=== PATIENT | female | born 1950 | race Caucasian/White ===

== ENCOUNTER 2018-05-28 12:06 | Emergency (ER) | payer MEDICARE, OTHER ==
[~2018-05-28] VITALS: Ht 149.9 cm; Wt 67.1 kg
[2018-05-28 12:07] VITALS: BP 112/65
[2018-05-28] MEDS ORDERED: NACL 0.9% 1,000 ML IV ONE (12:50)
[2018-05-28] MEDS ORDERED: KETOROLAC 30 MG/ML VIAL IVP ONE (13:30)
[2018-05-28 13:35] LABS: BASOPHILS % (AUTO) 0.2 % (0.0-2.0); EOSINOPHILS % (AUTO) 0.3 % (0.0-4.0); HEMATOCRIT 31.5 % (36-48); HEMOGLOBIN 10.1 g/dL (12.0-16.0); LYMPHOCYTES # (AUTO) 1.6 K/uL (2.5-16.5); LYMPHOCYTES % (AUTO) 27.8 % (20.5-51.1); MEAN CORPUSCULAR HEMOGLOBIN 28 pg (27-31); MEAN CORPUSCULAR HGB CONC 32 g/dL (33-37); MEAN CORPUSCULAR VOLUME 86.4 fL (80-94); MONOCYTES # (AUTO) 1.1 K/uL (0.8-1.0); MONOCYTES % (AUTO) 18.3 % (1.7-9.3); NEUTROPHILS # (AUTO) 3.1 K/uL (1.8-7.7); NEUTROPHILS % (AUTO) 53.4 % (42.2-75.2); PLATELET COUNT (AUTO) 249 K/uL (140-450); RED BLOOD CELL COUNT(AUTO) 3.65 MIL/uL (4.20-5.40); RED CELL DISTRIBUTION WIDTH 19.6 % (11.6-13.7); WHITE BLOOD COUNT (AUTO) 5.8 K/uL (4.8-10.8)
[2018-05-28 13:55] LABS: PROTHROMBIN TIME 13.3 secs (10.8-13.4)
[2018-05-28 14:03] LABS: ANION GAP 14.7 (8-16); CARBON DIOXIDE 22.8 mmol/L (21-32); CREATININE 0.9 mg/dL (0.6-1.3); POTASSIUM 3.5 mmol/L (3.5-5.1)
[2018-05-28 14:08] LABS: ALBUMIN 2.3 g/dL (3.4-5.0); TOTAL BILIRUBIN 0.9 mg/dL (0.0-1.0)
[2018-05-28] MEDS ORDERED: NACL 0.9% 2,000 ML IV ONE (14:15)
[2018-05-28 14:39] LABS: BILIRUBIN,URINE NEGATIVE (NEGATIVE); BLOOD, URINE NEGATIVE (NEGATIVE); COLOR,URINE YELLOW (YELLOW); LEUKOCYTE ESTERASE ,URINE TRACE (NEGATIVE); NITRITE, URINE NEGATIVE (NEGATIVE); PH,URINE 7.5 (5.0-9.0); UGLUCOSE NEGATIVE (NEGATIVE)
[2018-05-28 14:41] LABS: APPEARANCE,URINE HAZY (CLEAR)
[2018-05-28 15:11] LABS: RBC,URINE NONE SEEN /HPF (0-5); WBC,URINE 0-5 (RARE) /HPF (0-5)
[2018-05-28 17:00] VITALS: BP 136/89
== END 2018-05-28 17:01 | disposition home or self-care (01) ==
LOC: MED 12:06
DX: E86.0 Dehydration (principal); I10 Essential (primary) hypertension; E78.00 Pure hypercholesterolemia, unspecified; M06.9 Rheumatoid arthritis, unspecified
CPT/HCPCS: 36415; 71045; 80053; 81001; 83605; 83880; 84484; 85025; 85610; 85730; 87040; 87086; 96361; 96374; 99285; J1885; Q0092

== ENCOUNTER 2018-08-09 17:54 | Inpatient (IN) | payer OTHER, MEDICARE ==
[~2018-08-09] VITALS: Ht 144.8 cm; Wt 63.5 kg
[2018-08-09 18:04] VITALS: BP 138/71
--- NOTE | 2018-08-09 18:40 | NUR ---
PT PRESENT TO ED DUE ABD PAIN W/N AND V;PT IS CONSTIPATED X 2 WEEKS; DENIES FEVER; NO RESPIRATORY DISTRESS NOTED; AAOX 4; NEEDS ATTENDED; SAFETY MEASURES INSTITUTED;ALL MONITORS IN PLACED; ER MD WILL BE NOTIFIED.
--- NOTE | 2018-08-09 19:30 | NUR ---
BS ACTIVE X4, LOWER ABD DISTENDED AND TENDER ON PALPATION. PT UPDATED REGARDING STATUS OF CARE.
[2018-08-09] MEDS ORDERED: NACL 0.9% 1,000 ML IV SCH (22:08)
[2018-08-09] MEDS ORDERED: MORPHINE SULFATE 2 MG/ML SYR IVP ONE (22:10)
[2018-08-09] MEDS ORDERED: ONDANSETRON 4 MG/2 ML VIAL IVP ONE (22:10)
--- NOTE | 2018-08-09 22:35 | NUR ---
PT TAKEN TO CT
[2018-08-09 22:41] LABS: BASOPHILS % (AUTO) 0.2 % (0.0-2.0); EOSINOPHILS # (AUTO) 0.2 K/uL (0-0.4); EOSINOPHILS % (AUTO) 1.4 % (0.0-4.0); HEMATOCRIT 31.6 % (36-48); HEMOGLOBIN 10.3 g/dL (12.0-16.0); LYMPHOCYTES # (AUTO) 1.8 K/uL (2.5-16.5); LYMPHOCYTES % (AUTO) 15.2 % (20.5-51.1); MEAN CORPUSCULAR HEMOGLOBIN 28 pg (27-31); MEAN CORPUSCULAR HGB CONC 33 g/dL (33-37); MEAN CORPUSCULAR VOLUME 84.9 fL (80-94); NEUTROPHILS # (AUTO) 8.6 K/uL (1.8-7.7); NEUTROPHILS % (AUTO) 74.2 % (42.2-75.2); PLATELET COUNT (AUTO) 302 K/uL (140-450); RED BLOOD CELL COUNT(AUTO) 3.72 MIL/uL (4.20-5.40); RED CELL DISTRIBUTION WIDTH 18.2 % (11.6-13.7); WHITE BLOOD COUNT (AUTO) 11.6 K/uL (4.8-10.8)
[2018-08-09 23:06] LABS: ALBUMIN 2.7 g/dL (3.4-5.0); ANION GAP 11.5 (8-16); CARBON DIOXIDE 25.3 mmol/L (21-32); CREATININE 1.4 mg/dL (0.6-1.3); POTASSIUM 3.8 mmol/L (3.5-5.1); TOTAL BILIRUBIN 0.6 mg/dL (0.0-1.0)
[2018-08-10] MEDS ORDERED: metroNIDAZOLE 500 MG/NS PREMIX 100 ML IV ONE (00:10)
[2018-08-10] MEDS ORDERED: LACTULOSE 20 GM/30 ML UDC PO PRN (00:20)
[2018-08-10] MEDS ORDERED: MORPHINE SULFATE 2 MG/ML SYR IVP PRN (00:20)
[2018-08-10] MEDS ORDERED: ONDANSETRON 4 MG/2 ML VIAL IVP PRN (00:20)
--- NOTE | 2018-08-10 00:55 | NUR ---
Patient will be admitted to [facility]. Admited to TELE. Will go to room 119B. Belongings list completed. Report to SVETA AGUILAR.
[2018-08-10 01:00] VITALS: BP 147/70
--- NOTE | 2018-08-10 01:00 | NUR ---
REPORT RECEIVED FROM ED NURSE AT BEDSIDE. PT IN STABLE CONDITION. AAOX4. INTRODUCED SELF TO PT AND FAMILY. BOARD UPDATED. IV SITE L AC 18G PATENT AND INTACT. TIMED, DATED, AND INTIALED BY ED NURSE. VS STABLE. SKIN WARM, DRY, AND INTACT WITH NO OPEN WOUNDS. COMPLAINTS OF PAIN 04/20. WILL MEDICATE. BED LOCKED IN LOW POSITION. CALL VERA WITHIN REACH. SAFETY MEASURES IN PLACE.
[2018-08-10] MEDS: DEXT 5% / NACL 0.45% 1,000 ML IV SCH ×2 (01:20→18:49)
--- NOTE | 2018-08-10 01:40 | NUR ---
PAIN 6/10. MORPHINE GIVEN FOR MODERATE PAIN. PT TOLERATED WELL. WILL CONTINUE TO MONITOR.
[2018-08-10] MEDS: LEVOFLOXACIN 250 MG/D5 PREMIX 50 ML IV SCH (01:57)
--- NOTE | 2018-08-10 01:57 | NUR ---
MOHIT BARAHONA AND RUNNING. PT TOLERATING WELL.
--- NOTE | 2018-08-10 04:30 | NUR ---
PT SLEEPING COMFORTABLY IN BED LEFT LATERAL. NO S/S OF DISTRESS NOTED. NO COMPLAINTS OF PAIN OR SOB. BREATHING UNLABORED AND WNL. WILL CONTINUE TO MONITOR.
[2018-08-10] MEDS: metroNIDAZOLE 500 MG/NS PREMIX 100 ML IV SCH ×3 (05:07→20:45)
--- NOTE | 2018-08-10 05:07 | NUR ---
MIKE HUNG AND RUNNING. PT TOLERATING WELL.
--- NOTE | 2018-08-10 07:05 | NUR ---
REPORT GIVEN TO AM NURSE AT BEDSIDE. PT IN STABLE CONDITION.
--- NOTE | 2018-08-10 07:06 | NUR ---
RECEIVED BEDSIDE REPORT FROM NIGHT NURSE.PT AWAKE, ALERT, ORIENTED X 4. AMBULATE W/ ASSIST TO BEDSIDE COMMODE. PORTUGUESE SPEAKER. FALL RISK IN PLACE. MS PT. SKIN INTACT. IV ON L AC , D5 1/2 NS , G 18, INFUSING @ 60ML/HR, PATENT. NO COMPLAINTS AT THIS TIME. CALL LIGHT WITHIN REACK. WILL CONTINUE TO MONITOR.
[2018-08-10 08:00] VITALS: BP 118/70
[2018-08-10] MEDS: ENOXAPARIN 30 MG/0.3 ML SYR SUBQ SCH (09:14)
--- NOTE | 2018-08-10 09:15 | NUR ---
ADMINISTERED ALL AM MEDS AND PRN CONSTIPATION MED. PT TOLERATED WELL. PT IN STABLE CONDITION, NO COMPLAINTS AT THIS TIME. WILL COLLECT URINE SAMPLE WHEN PT URINATES.
[2018-08-10] MEDS ORDERED: SODIUM PHOSPHATE 118 ML ENEM RC PRN (09:25)
--- NOTE | 2018-08-10 10:30 | NUR ---
PT HAD BOWEL MOVEMENT AFTER GIVING LACTULOSE. FORMED, HARD, IN SMALL AMOUNTS. WITH ONGOING ORDER FOR STOOL SOFTENERS.
--- NOTE | 2018-08-10 11:00 | NUR ---
PATIENT HAD A LOOSE STOOL. LARGE. FORMED AND BROWN LIQUID. CLEANSED AND CHANGED THE PATIENT. WILL CONTINUE TO MONITOR THE PATIENT
[2018-08-10 11:48] LABS: BASOPHILS % (AUTO) 0.2 % (0.0-2.0); EOSINOPHILS # (AUTO) 0.1 K/uL (0-0.4); EOSINOPHILS % (AUTO) 1.2 % (0.0-4.0); HEMATOCRIT 30.2 % (36-48); LYMPHOCYTES # (AUTO) 1.5 K/uL (2.5-16.5); LYMPHOCYTES % (AUTO) 18.4 % (20.5-51.1); MEAN CORPUSCULAR HEMOGLOBIN 28 pg (27-31); MEAN CORPUSCULAR HGB CONC 33 g/dL (33-37); MEAN CORPUSCULAR VOLUME 85.1 fL (80-94); NEUTROPHILS # (AUTO) 5.5 K/uL (1.8-7.7); NEUTROPHILS % (AUTO) 68.2 % (42.2-75.2); PLATELET COUNT (AUTO) 301 K/uL (140-450); RED BLOOD CELL COUNT(AUTO) 3.54 MIL/uL (4.20-5.40); RED CELL DISTRIBUTION WIDTH 17.8 % (11.6-13.7)
--- NOTE | 2018-08-10 12:05 | NUR ---
PATIENT ON 3RD BM AFTER THE LACTULOSE. WILL CLEANSE WHEN PATIENT IS DONE. BED IN LOW POSITION. CALL LIGHT WITHIN REACH
[2018-08-10 12:22] LABS: ALBUMIN 2.4 g/dL (3.4-5.0); ANION GAP 13.8 (8-16); CARBON DIOXIDE 21.7 mmol/L (21-32); CREATININE 1.3 mg/dL (0.6-1.3); POTASSIUM 3.5 mmol/L (3.5-5.1); TOTAL BILIRUBIN 0.5 mg/dL (0.0-1.0)
--- NOTE | 2018-08-10 12:35 | NUR ---
CLEANSED PATIENT. MEDIUM BM, LOOSE W FORMED STOOL. BROWN. PATIENT STATES THERE IS RELIEF OF CRAMPS AFTER THE STOOL WAS DONE. WILL CONTINUE TO MONITOR THE PATIENT. GRANDSON AT BEDSIDE.
[2018-08-10] MEDS ORDERED: AMLO1CAP11 PO (13:03)
[2018-08-10] MEDS ORDERED: ATOR40TA PO (13:03)
[2018-08-10] MEDS ORDERED: PAX10 PO (13:03)
[2018-08-10] MEDS ORDERED: LEVO0.0512 PO (13:03)
[2018-08-10] MEDS ORDERED: ASPI81CT89 PO (13:03)
[2018-08-10] MEDS ORDERED: IRBE300T56 PO (13:03)
[2018-08-10] MEDS ORDERED: FOLI1TAB90 PO (13:03)
[2018-08-10] MEDS ORDERED: TRI48 PO (13:03)
[2018-08-10] MEDS ORDERED: DETLA4 PO (13:03)
[2018-08-10] MEDS ORDERED: METO25TE2 PO (13:03)
--- NOTE | 2018-08-10 14:30 | NUR ---
NEW IV SITE INSERTED AT RIGHT AC, 22 G. PATENT, INFUSING WELL. PT TOLERATED PROCEDURE. REMOVED LEFT AC OLD IV SITE DUE TO INFILTRATION, CANNULA INTACT. WILL CONTINUE TO MONITOR. FAMILY AT BEDSIDE.
--- NOTE | 2018-08-10 15:00 | NUR ---
PT HAD ANOTHER LOOSE BM, NO PAIN AT THIS TIME. PT STATES SHE HAS COMFORT AFTER THE BM.WILL CONTINUE TO MONITOR.
[2018-08-10 16:00] VITALS: BP 108/53
--- NOTE | 2018-08-10 16:40 | NUR ---
PT IN BED SLEEPING, NO COMPLAINTS AT THIS TIME, STABLE. NO RESPIRATORY DISTRESS. NO CHANGE IN CONDITION NOTED.
--- NOTE | 2018-08-10 18:00 | NUR ---
AT BEDSIDE FEEDING HIS . NO SIGNS OF DISTRESS. WILL CONTINUE TO MONITOR THE PATIENT
--- NOTE | 2018-08-10 19:15 | NUR ---
ENDORSED BEDSIDE REPORT TO ROAD FREIGHT FIRER NURSE. PT IN STABLE CONDITION .
--- NOTE | 2018-08-10 19:16 | NUR ---
REPORT RECEIVED FROM AM NURSE AT BEDSIDE. PT IN STABLE CONDITION. AAOX4. BOARD UPDATED AND INTRODUCED SELF TO PT AND FAMILY. IV SITE PATENT AND INTACT NOW R AC 22G PATENT AND INTACT. SKIN WARM, DRY, AND INTACT. NO COMPLAINTS OF PAIN. NO SOB. PT HAD 5 LOOSE AND WATERY STOOLS DURING AM SHIFT. BED LOCKED IN LOW POSITION. CALL VERA WITHIN REACH. SAFETY MEASURES IN PLACE.
[2018-08-10] MEDS: POLYETHYLENE GLYCOL 17 GM/PKT PO SCH (20:45)
--- NOTE | 2018-08-10 20:45 | NUR ---
MIKE BARAHONA AND ALE. MIRALAX GIVEN PO. PT TOLERATED WELL.
--- NOTE | 2018-08-10 21:45 | NUR ---
PT HAD ANOTHER LOOSE AND WATERY STOOL. PT CLEANED AND LINEN CHANGED.
--- NOTE | 2018-08-10 23:30 | NUR ---
PT SLEEPING COMFORTABLY. NO S/S OF DISTRESS NOTED BREATHING EVEN, UNLABORED, AND WNL. NO COMPLAINTS OF PAIN. WILL CONTINUE TO MONITOR.
[2018-08-11 00:55] VITALS: BP 112/60
[2018-08-11] MEDS: LEVOFLOXACIN 250 MG/D5 PREMIX 50 ML IV SCH (01:10)
--- NOTE | 2018-08-11 01:10 | NUR ---
MOHIT BARAHONA AND RUNNING. PT TOLERATED WELL.
--- NOTE | 2018-08-11 03:00 | NUR ---
PT SLEEPING COMFORTABLY IN BED. NO S/S OF DISTRESS NOTED. RESPIRATIONS UNLABORED, EVEN, AND WNL. WILL CONTINUE TO MONITOR.
[2018-08-11] MEDS: metroNIDAZOLE 500 MG/NS PREMIX 100 ML IV SCH ×2 (04:51→13:46)
--- NOTE | 2018-08-11 04:51 | NUR ---
MIKE HUNG AND RUNNING. PT TOLERATED WELL.
--- NOTE | 2018-08-11 06:04 | NUR ---
2ND BAG OF MG-RIDER INITIATED AT THIS TIME. PT WITH LOOSE STOOL IN BED. PERICARE PROVIDED, CHANGED CHUCKS. NO C/O DISCOMFORT/PAIN. RESPIRATIONS EVEN & UNLABORED. RIGHT AC IV ACCESS IN PLACE, ASYMPTOMATIC. CALL LIGHT WITHIN REACH. Addendum: 08/11/18 at 1643 by Radha Whitney RN WRONG TIME INPUT. CORRECTION FOR TIME OF EVENT: 2103 08/11/19
--- NOTE | 2018-08-11 07:20 | NUR ---
REPORT GIVEN TO AM NURSE AT BEDSIDE. PT IN STABLE CONDITION.
--- NOTE | 2018-08-11 07:21 | NUR ---
BEDSIDE REPORT RECEIVED FROM PM SHIFT NURSE. PT ASLEEP IN BED, RESPIRATIONS EVEN & UNLABORED, FLACC 0. CALL LIGHT WITHIN REACH. BEDSIDE COMMODE NEXT TO BED. BED IN LOWEST POSITION WITH ALARM ON.
[2018-08-11 07:37] LABS: BASOPHILS % (AUTO) 0.2 % (0.0-2.0); EOSINOPHILS # (AUTO) 0.3 K/uL (0-0.4); EOSINOPHILS % (AUTO) 4.5 % (0.0-4.0); HEMATOCRIT 26.1 % (36-48); HEMOGLOBIN 8.6 g/dL (12.0-16.0); LYMPHOCYTES # (AUTO) 1.5 K/uL (2.5-16.5); LYMPHOCYTES % (AUTO) 25.9 % (20.5-51.1); MEAN CORPUSCULAR HEMOGLOBIN 28 pg (27-31); MEAN CORPUSCULAR HGB CONC 33 g/dL (33-37); MEAN CORPUSCULAR VOLUME 85.2 fL (80-94); MONOCYTES # (AUTO) 0.8 K/uL (0.8-1.0); MONOCYTES % (AUTO) 13.9 % (1.7-9.3); NEUTROPHILS # (AUTO) 3.1 K/uL (1.8-7.7); NEUTROPHILS % (AUTO) 55.5 % (42.2-75.2); PLATELET COUNT (AUTO) 253 K/uL (140-450); RED BLOOD CELL COUNT(AUTO) 3.06 MIL/uL (4.20-5.40); RED CELL DISTRIBUTION WIDTH 18.1 % (11.6-13.7); WHITE BLOOD COUNT (AUTO) 5.6 K/uL (4.8-10.8)
[2018-08-11 08:00] VITALS: BP 123/69
[2018-08-11 08:01] LABS: ALBUMIN 2.1 g/dL (3.4-5.0); CARBON DIOXIDE 21.7 mmol/L (21-32); MAGNESIUM 1.5 mg/dL (1.8-2.4); PHOSPHORUS 2.6 mg/dL (2.5-4.9); TOTAL BILIRUBIN 0.5 mg/dL (0.0-1.0)
--- NOTE | 2018-08-11 08:20 | NUR ---
RECEIVED CRITICAL POTASSIUM RESULT FROM LAB. DR TAINA MCLEAN. PT CURRENTLY SITTING UP IN BED, EATING BREAKFAST. DENIES ANY DISCOMFORT. RESPIRATIONS EVEN & UNLABORED. DENIES ANY MUSCLULAR DISCOMFORT. CALL LIGHT WITHIN REACH.
[2018-08-11 08:21] LABS: POTASSIUM 2.7 mmol/L (3.5-5.1)
--- NOTE | 2018-08-11 08:35 | NUR ---
DR. HER PAGED AGAIN RE: CRITICAL POTASSIUM LEVEL, & BMP & MG RESULTS. AWAITING MD CALL BACK.
[2018-08-11] MEDS ORDERED: MAG SULF 2000 MG/WATER PREMIX 50 ML IV ONE (08:55)
[2018-08-11] MEDS: POLYETHYLENE GLYCOL 17 GM/PKT PO SCH (09:01)
[2018-08-11] MEDS: ENOXAPARIN 30 MG/0.3 ML SYR SUBQ SCH (09:03)
--- NOTE | 2018-08-11 09:12 | NUR ---
PATIENT HAS BEEN SCREENED AND CATEGORIZED MODERATE NUTRITION RISK. PATIENT WILL BE SEEN WITHIN 3-5 DAYS OF ADMISSION. 08/12/18 08/14/[address]
[2018-08-11] MEDS ORDERED: POTASSIUM CHLORIDE 40 MEQ, LIDOCAINE 1% 25 MG in NACL 0.9% 250 ML IV SCH (09:30)
[2018-08-11] MEDS ORDERED: POTASSIUM CHLORIDE 10 MEQ TABER PO SCH (09:30)
[2018-08-11] MEDS: DEXT 5% / NACL 0.45% 1,000 ML IV SCH (09:40)
--- NOTE | 2018-08-11 09:45 | NUR ---
INITIATED K-RIDER INFUSION AT THIS TIME @ 68ML/HR. PT TOLERATING WELL. DENIES ANY DISCOMFORT. RIGHT AC IV ACCESS INTACT, & ASYMPTOMATIC. CALL LIGHT WITHIN REACH. BED IN LOWEST POSITION WITH ALARM ON.
--- NOTE | 2018-08-11 10:05 | NUR ---
PT HAD MOD AMT LOOSE BM IN BED. PERICARE PROVIDED VIA 1-PERSON MOD ASSIST. BED LINENS CHANGED. PT RANDY ADL CARE WELL, ABLE TO UTILIZE SIDERAILS FOR MOBILITY, FOLLOWS SIMPLE INSTRUCTION. PT DENIES ANY ABD DISCOMFORT AT THIS TIME. ABD SOFT WITH ACTIVE BOWEL SOUNDS. RIGHT IV ACCESS INTACT & ASYMPTOMATIC WITH ONGOING K-RIDER INFUSION. CALL LIGHT WITHIN REACH. MALE VISITOR CAME IN TO SEE PT.
[2018-08-11 11:43] LABS: ANION GAP 10.2 (8-16); CARBON DIOXIDE 22.5 mmol/L (21-32); POTASSIUM 3.7 mmol/L (3.5-5.1)
[2018-08-11] MEDS ORDERED: INFLUENZA VIRUS VACCINE QUAD 0.5 ML SYR IMVAC PRN (12:00)
[2018-08-11] MEDS ORDERED: PNEUMOCOCCAL VACCINE 23 MCG/0.5 ML VIAL IMVAC PRN (12:00)
[2018-08-11] MEDS ORDERED: POLY17PD46 PO (12:27)
[2018-08-11] MEDS ORDERED: CIPR500T4 PO (12:27)
[2018-08-11] MEDS ORDERED: LACT10SO11 PO (12:27)
--- NOTE | 2018-08-11 12:50 | NUR ---
DR HER CAME IN TO SEE PT.
--- NOTE | 2018-08-11 13:36 | NUR ---
CM NOTE INITIAL REVIEW FAXED TO [facility] [phone] JAMES # [phone]
--- NOTE | 2018-08-11 13:46 | NUR ---
K-RIDER INFUSION COMPLETED. IV FLAGYL INFUSION INITIATED AT THIS TIME. PT WITH LOOSE BM IN BED. PERICARE PROVIDED, UNDERPADS CHANGED. PT DENIES ANY DISCOMFORT. CALL LIGHT WITHIN REACH. BED IN LOWEST POSITION WITH ALARM ON. ENCOURAGED PT TO CALL STAFF FOR ASSISTANCE PRN. PT VERBALIZED "OK". PT ALSO NOTIFIED OF DISCHARGE ORDER FROM DR HER. PT AWARE & STATES FAMILY WILL PICK HER UP AROUND 5PM.
[2018-08-11] MEDS: MAGNESIUM SULFATE 1GM in DEXTROSE 5% 100 ML PREMIX IV SCH ×2 (15:01→16:04)
--- NOTE | 2018-08-11 15:01 | NUR ---
FLAGYL INFUSION COMPLETED. 1ST BAG OF MG-RIDER INITIATED. PT AA0x4, DENIES ANY DISCOMFORT AT THIS TIME. RESPIRATIONS EVEN & UNLABORED. CALL LIGHT WITHIN REACH. FALL PRECAUTIONS IN PLACE.
[2018-08-11 16:00] VITALS: BP 111/57
--- NOTE | 2018-08-11 16:04 | NUR ---
2ND BAG OF MG-RIDER INITIATED AT THIS TIME. PT WITH LOOSE STOOL IN BED. PERICARE PROVIDED, CHANGED CHUCKS. NO C/O DISCOMFORT/PAIN. RESPIRATIONS EVEN & UNLABORED. RIGHT AC IV ACCESS IN PLACE, ASYMPTOMATIC. CALL LIGHT WITHIN REACH.
--- NOTE | 2018-08-11 17:40 | NUR ---
PT DISCHARGED AT THIS TIME VIA PERSONAL WHEELCHAIR, ACCOMPANIED BY [id number] JAS. DISCHARGE PACKET SIGNED BY JAS PER PT REQUEST. PT & DTR-IN-LAW VERBALIZED UNDERSTANDING OF DISCHARGE INSTRUCTIONS. PT STABLE, NO C/O PAIN. PT WEARING UPPER & LOWER DENTURES UPON DISCHARGE. RT AC IV ACCESS DISCONTINUED & COVERED WITH DRY DRESSING, NO BLEEDING. ALL MEDS & BELONGINGS WITH PT UPON DISCHARGE.
== END 2018-08-11 17:40 | disposition home or self-care (01) | DRG 247 ==
LOC: MED 17:54 → MTU 08-10 00:29
PROVIDERS: ADMIT Hospitalist; ATTEND Hospitalist
PROC: 3E0234Z Introduction of Serum, Toxoid and Vaccine into Muscle, Percutaneous Approach (ICD-10-PCS; principal; 2018-08-11)
PROC: 3E02340 Introduction of Influenza Vaccine into Muscle, Percutaneous Approach (ICD-10-PCS; 2018-08-11)
DX: K56.41 Fecal impaction (principal); N17.9 Acute kidney failure, unspecified; E88.09 Other disorders of plasma-protein metabolism, not elsewhere classified; K52.9 Noninfective gastroenteritis and colitis, unspecified; E03.9 Hypothyroidism, unspecified; E78.00 Pure hypercholesterolemia, unspecified; I10 Essential (primary) hypertension; Z98.891 History of uterine scar from previous surgery; Z79.899 Other long term (current) drug therapy; M06.9 Rheumatoid arthritis, unspecified; E86.0 Dehydration; E78.5 Hyperlipidemia, unspecified; Z23 Encounter for immunization
CPT/HCPCS: 36415; 74018; 80048; 80053; 83690; 83735; 84100; 84443; 85025; 87040; 87081; 90658; 90732; 96361; 96374; 96375; 97116; 99285; J1650; J1956; J2001; J2270; J2405; J3480; J3490; J7030; Q0092

== ENCOUNTER 2018-09-23 11:04 | Emergency (ER) | payer MEDICARE, OTHER ==
[~2018-09-23] VITALS: Ht 144.8 cm; Wt 57.2 kg
[~2018-09-23 11:04] MED LIST: AMLO1CAP11 PO; ASPI81CT89 PO; ATOR40TA PO; CIPR500T4 PO; DETLA4 PO; FOLI1TAB90 PO; IRBE300T56 PO; LACT10SO11 PO; LEVO0.0512 PO; METO25TE2 PO; PAX10 PO; POLY17PD46 PO; TRI48 PO
[2018-09-23 11:08] VITALS: BP 117/79
--- NOTE | 2018-09-23 11:22 | NUR ---
PATIENT BIB DAUGHTER WITH C/O NECK PAIN AND HEMATOMA ON R LOWER BACK, PT WAS REFFERED OVER FROM PCP, SEEN EARLIER TODAY, NO TRAUMA OT INJURY . AAOX4 WITH EVEN AND STEADY GAIT; LUNGS CLEAR BL; HR EVEN AND REGULAR; PT DENIES ANY FEVER, CP, SOB, OR COUGH AT THIS TIME; DENIES N/V/D; SKIN IS PINK/WARM/DRY; PATIENT STATES PAIN OF 10/10 AT THIS TIME; VSS; PATIENT POSITIONED FOR COMFORT; HOB ELEVATED; BEDRAILS UP X2; BED DOWN. ER MD MADE AWARE OF PT STATUS.
[2018-09-23 11:45] LABS: BASOPHILS % (AUTO) 0.3 % (0.0-2.0); EOSINOPHILS # (AUTO) 0.2 K/uL (0-0.4); EOSINOPHILS % (AUTO) 3.5 % (0.0-4.0); HEMATOCRIT 30.2 % (36-48); LYMPHOCYTES # (AUTO) 1.8 K/uL (2.5-16.5); LYMPHOCYTES % (AUTO) 26.9 % (20.5-51.1); MEAN CORPUSCULAR HEMOGLOBIN 27 pg (27-31); MEAN CORPUSCULAR HGB CONC 33 g/dL (33-37); MEAN CORPUSCULAR VOLUME 82.5 fL (80-94); MONOCYTES # (AUTO) 0.6 K/uL (0.8-1.0); MONOCYTES % (AUTO) 9.1 % (1.7-9.3); NEUTROPHILS # (AUTO) 4.1 K/uL (1.8-7.7); NEUTROPHILS % (AUTO) 60.2 % (42.2-75.2); PLATELET COUNT (AUTO) 439 K/uL (140-450); RED BLOOD CELL COUNT(AUTO) 3.65 MIL/uL (4.20-5.40); RED CELL DISTRIBUTION WIDTH 18.2 % (11.6-13.7); WHITE BLOOD COUNT (AUTO) 6.8 K/uL (4.8-10.8)
[2018-09-23 11:57] LABS: ANION GAP 11.4 (8-16); CARBON DIOXIDE 25.2 mmol/L (21-32); CREATININE 0.7 mg/dL (0.6-1.3); POTASSIUM 3.6 mmol/L (3.5-5.1)
[2018-09-23 12:02] LABS: PROTHROMBIN TIME 11.3 secs (10.8-13.4)
[2018-09-23 12:03] LABS: ALBUMIN 2.2 g/dL (3.4-5.0); TOTAL BILIRUBIN 0.5 mg/dL (0.0-1.0)
--- NOTE | 2018-09-23 13:00 | NUR ---
Patient being evaluated by physician at bedside.
[2018-09-23] MEDS ORDERED: KETOROLAC 60 MG/2 ML VIAL IM ONE (13:20)
[2018-09-23 13:48] VITALS: BP 110/72
== END 2018-09-23 13:48 | disposition home or self-care (01) ==
LOC: MED 11:04
DX: S13.9XXA Sprain of joints and ligaments of unspecified parts of neck, initial encounter (principal); E05.90 Thyrotoxicosis, unspecified without thyrotoxic crisis or storm; I10 Essential (primary) hypertension; X58.XXXA Exposure to other specified factors, initial encounter; Y93.89 Activity, other specified; Y92.89 Other specified places as the place of occurrence of the external cause; Y99.8 Other external cause status; Z79.899 Other long term (current) drug therapy; Z79.82 Long term (current) use of aspirin
CPT/HCPCS: 36415; 70450; 71045; 71250; 72125; 80053; 85025; 85610; 85730; 96372; 99285; J1885; Q0092

== ENCOUNTER 2022-03-08 13:15 | Emergency (ER) | payer MEDICARE, OTHER ==
[~2022-03-08] VITALS: Ht 144.8 cm; Wt 62.3 kg
[~2022-03-08 13:15] MED LIST changes: -AMLO1CAP11 PO; +AMLO1CAP91 PO; +ASPI-1822 PO; -ASPI81CT89 PO; +IRBE300T26 PO; -IRBE300T56 PO
[2022-03-08 13:33] VITALS: BP 128/71
--- NOTE | 2022-03-08 13:39 | NUR ---
PT TAKEN TO ER BED 9 VIA W/C WITH MINIMAL ASSISTANCE.
--- NOTE | 2022-03-08 13:57 | NUR ---
DR. LOMBARDI AT PT BEDSIDE FOR FURTHER EVALUATION.
--- NOTE | 2022-03-08 14:12 | NUR ---
SPEECH THERAPY ASSISTANT AT PT BEDSIDE.
--- NOTE | 2022-03-08 14:16 | NUR ---
Ceci jacki in ED - 03/08/22 at 1417 by [facility] 71 Y/O FEMALE C/O RECTLAL BLEEDING, GENERALIZED ABD PAIN 04/20 DESCRIBES CRAMPING X 1DAY WITH BLOOD IN STOOL FOR 1 DAY. DENIES FEVER/CHILLS. DENIES N/ PMH: HTN, STROKE IN 2015 , TAKING ASPIRIN, ARTHRITIS, HLD, HTN
--- NOTE | 2022-03-08 14:16 | NUR ---
71 Y/O FEMALE C/O RECTLAL BLEEDING, GENERALIZED ABD PAIN 6/10 DESCRIBES CRAMPING X 1DAY WITH BLOOD IN STOOL FOR 1 DAY. DENIES FEVER/CHILLS. DENIES N/V/D. PMH: HTN, STROKE IN 2015 , TAKING ASPIRIN, ARTHRITIS, HLD, HTN NKA
[2022-03-08 14:19] LABS: BASOPHILS # (AUTO) 0.3 K/uL (0.00-0.22); BASOPHILS % (AUTO) 4.4 % (0.0-2.0); EOSINOPHILS # (AUTO) 0.2 K/uL (0-0.4); EOSINOPHILS % (AUTO) 3.4 % (0.0-4.0); HEMATOCRIT 35.3 % (36-48); HEMOGLOBIN 11.7 g/dL (12.0-16.0); LYMPHOCYTES # (AUTO) 1.4 K/uL (2.5-16.5); MEAN CORPUSCULAR HEMOGLOBIN 30 pg (27-31); MEAN CORPUSCULAR HGB CONC 33 g/dL (33-37); MEAN CORPUSCULAR VOLUME 91.7 fL (80-94); MONOCYTES # (AUTO) 0.9 K/uL (0.8-1.0); MONOCYTES % (AUTO) 15.2 % (1.7-9.3); NEUTROPHILS # (AUTO) 3.4 K/uL (1.8-7.7); PLATELET COUNT (AUTO) 210 K/uL (140-450); RED BLOOD CELL COUNT(AUTO) 3.85 MIL/uL (4.20-5.40); RED CELL DISTRIBUTION WIDTH 16.6 % (11.6-13.7); WHITE BLOOD COUNT (AUTO) 6.2 K/uL (4.8-10.8)
--- NOTE | 2022-03-08 14:30 | NUR ---
PT TAKEN TO CT VIA RNASRIN.
[2022-03-08 14:37] LABS: PROTHROMBIN TIME 10.5 secs (10.8-13.4)
[2022-03-08 14:38] LABS: ALBUMIN 2.9 g/dL (3.4-5.0); CARBON DIOXIDE 27.6 mmol/L (21-32); CREATININE 0.8 mg/dL (0.6-1.3); POTASSIUM 3.6 mmol/L (3.5-5.1); TOTAL BILIRUBIN 0.4 mg/dL (0.0-1.0)
--- NOTE | 2022-03-08 14:47 | NUR ---
PT TAKEN TO ER BED [address]
[2022-03-08] MEDS ORDERED: DOCU-299 PO (15:36)
[2022-03-08 15:49] VITALS: BP 128/71
--- NOTE | 2022-03-08 15:49 | NUR ---
Patient discharged with v/s stable. Written and verbal after care instructions given FOR HEMORRHOIDS and explained. Patient alert, oriented and verbalized understanding of instructions. W/C ASSIST by caregiver. All questions addressed prior to discharge. ID band removed. Patient advised to follow up with PMD. Rx of COLACE given. Patient educated on indication of medication including possible reaction and side effects. Opportunity to ask questions provided and answered.
== END 2022-03-08 15:49 | disposition home or self-care (01) ==
LOC: MED 13:15
DX: K64.9 Unspecified hemorrhoids (principal); I10 Essential (primary) hypertension; Z79.899 Other long term (current) drug therapy; Z98.890 Other specified postprocedural states; Z79.82 Long term (current) use of aspirin
CPT/HCPCS: 36415; 80053; 83690; 85025; 85610; 85730; 99284